=== PATIENT | male | born 1980 | race Caucasian/White ===

== ENCOUNTER → 2020-09-15 10:03 | Outpatient (BNVA) | payer MEDICAID, SELFPAY | PROVIDERS: Family Provider Family Medicine; PCP Family Medicine; Visit Provider Specialist | DX: R20.0 Anesthesia of skin (principal); G56.01 Carpal tunnel syndrome, right upper limb | CPT/HCPCS: 95908 ==

== ENCOUNTER → 2020-12-12 19:15 | Outpatient (BNVA) | payer MEDICARE, SELFPAY | PROVIDERS: Family Provider Family Medicine; PCP Family Medicine; Visit Provider Orthopaedic Surgery | DX: Z20.822 Contact with and (suspected) exposure to COVID-19 (principal) | CPT/HCPCS: 87635 ==

== ENCOUNTER 2020-12-18 06:04 | Day surgery (SDC) | payer MEDICARE, SELFPAY ==
[2020-12-18 06:25] VITALS: BP 124/66; PULSE 65; RESP 18; TEMP 36.3; O2SAT 97; BMI 34.9
[2020-12-18] MEDS: sodium chloride 0.9% 1,000 ML 30 ML IV (06:45)
--- NOTE | 2020-12-18 07:58 | P.ANESASSM_ITS ---
Pre-Anesthetic Assessment Pre-Anesthetic Assessment: Height/Weight: Height 1.73 m Weight 104.326 kg Temp Pulse Resp BP Pulse Ox 97.3 F L 65 18 124/66 97 12/18/20 06:25 12/18/20 06:25 12/18/20 06:25 12/18/20 06:25 12/18/20 06:25 Preop Diagnosis: Carpal tunnel syndrome right Proposed Procedure: Operation Date: 12/18/20 08:00 Proposed Procedures p Carpal Tunnel Release 95743 G56.01(Right) - Varghese Fuller MD Was Beta Hussein taken within 24 hours: N/A Was Clonidine taken within 24 hours: N/A Last intake: Intake Last Liquid Date 12/17/20 Last Liquid Time 21:00 Last Solid Date 12/17/20 Last Solid Time 19:30 Social: Social History: Tobacco Packs per day: 1 Comment: Smoked today Exam: Pre-Anes Outpt Exam: alert, oriented x 3, clear to auscultation bilaterally and regular rate & rhythm Airway: Submandibular: WNL Cervical ROM: WNL MP: 2 History/ROS: No significant complaints Pulmonary: Pulmonary: COPD Anesthetic Plan: ASA status: 2 Anesthesia: Anesthesia Evaluation, MAC and Regional (specify below) Other: [place] block Risk of > 500 ml blood loss (7ml/kg in children): No Meds/Allergies Current Medications: Current Medications Generic Name Dose Route Start Last Admin Trade Name Freq PRN Reason Stop Dose Admin Sodium Chloride 1,000 mls @ 30 ml s/hr 12/18/20 06:15 12/18/20 06:45 Sodium Chloride 0.9% IV 12/19/20 06:14 30 mls/hr .Q24H SANDRA Administration PFSH Anesthesia PFSH: Social History Smoking and tobacco status: current every day smoker Data Anesthesia Cardiac Studies: No Data to Display
--- NOTE | 2020-12-18 08:02 | P.HP_ITS ---
Same Day Surgery H&P Indication for Procedure/HPI DATE OF PROCEDURE: December 18, 2020 CHIEF COMPLAINT/INDICATIONFOR SURGICAL PROCEDURE: Right carpal tunnel syndrome here for right carpal tunnel release PREOP DIAGNOSIS: Carpal tunnel syndrome right PLANNED PROCEDRUE: Operation Date: 12/18/20 08:00 Proposed Procedures p Carpal Tunnel Release 58720 G56.01(Right) - Varghese Fuller MD Jace has a 1 year history of numbness tingling and burning in his right hand. EMG nerve conduction study showed moderately severe carpal tunnel syndrome. He is here for carpal tunnel release Medications/Allergies* Home Medications Medication Instructions Recorded Confirmed Type meloxicam 7.5 mg tablet 7.5 mg PO DAILY 09/15/20 12/18/20 History Allergies/Adverse Reactions Allergy/AdvReac Type Severity Reaction Status Date / Time No Known Allergies Allergy Verified 10/20/20 13:55 Current Medications: Generic Name Dose Route Start Last Admin Trade Name Freq PRN Reason Stop Dose Admin Sodium Chloride 1,000 mls @ 30 mls/hr 12/18/20 06:15 12/18/20 06:45 Sodium Chloride 0.9% IV 12/19/20 06:14 30 mls/hr .Q24H SANDRA Administration Pertinent History/Comorbid Conditions* Social History Smoking and tobacco status: current every day smoker Pertinent Exam Findings alert, oriented x 3, clear to auscultation bilaterally and regular rate & rhythm Recommendations Surgery/Procedure today Coding Level of Care Code Acute Senior Business Intelligence Analyst for Walker Simmons
[2020-12-18 08:54] VITALS: O2SAT 92
[2020-12-18 08:55] VITALS: BP 108/76; PULSE 89; RESP 14; TEMP 36.2; O2SAT 93
--- NOTE | 2020-12-18 08:55 | P.OP_ITS ---
Operative Report Date of procedure: December 18, 2020 Pre-op Diagnosis: Carpal tunnel syndrome right Post-op diagnosis: same Post-op Findings: Same Procedure Done: Right carpal tunnel syndrome Pathology: none sent Surgeon: Varghese Fuller Anesthesia: Nerve Block (Iain block) Estimated blood loss (mL): 2 Tourniquet time (min): 20 Condition: stable Disposition: PACU Procedure: Patient was taken to the operating room and anesthesia provided by the anesthesia service. She was prepped and draped with the arm exposed. A timeout was performed. A 3 cm long incision was made in line with the fourth ray from the distal edge of the carpal tunnel extending proximally. The subcutaneous fat and palmar fascia was divided with a scalpel blade. Under loupe magnification the ulnar neurovascular bundle was identified distally. A hemostat could be passed under the transverse carpal ligament allowing the distal 25% to be divided. A slotted guide was then passed beneath the transv erse carpal ligament and the middle 50% divided. Blunt scissors were then passed over the guide freeing the proximal ligament. The tourniquet was deflated. Hemostasis provided with electrocautery. Wound edges were infiltrated with 10 cc of a half percent Marcaine solution. Skin edges were reapproximated with 3-0 Prolene. Sterile dressings were applied. The patient was taken to the recovery room in stable condition
[2020-12-18 09:00] VITALS: BP 103/65; PULSE 78; RESP 19; TEMP 36.4; O2SAT 91
[2020-12-18 09:20] VITALS: BP 115/66; PULSE 72; RESP 18; TEMP 36.6; O2SAT 93
[2020-12-18] MEDS: HYDROcodone-acetaminophen 5-325 mg Tablet 1 TAB PO (09:31)
--- NOTE | 2020-12-18 10:16 | ANE.PACU2 ---
Inpatient post-anesthesia follow up: Airway intact: Yes Vital signs: Temperature 97.9 F Pulse Rate 72 Respiratory Rate 18 Blood Pressure 115/66 Pulse Oximetry 93 Oxygen Delivery Me thod Room Air Oxygen Flow Rate Fraction of Inspir ed Oxygen Hydration adequate: Yes Nausea and vomiting: No Pain level: 1 Mental status: Baseline
== END 2020-12-18 09:40 | disposition home or self-care (01) ==
PROVIDERS: PCP Family Medicine; Visit Provider Orthopaedic Surgery
PROC: (CPT 64721; principal; 2020-12-18 08:00)
DX: G56.01 Carpal tunnel syndrome, right upper limb (principal); R20.0 Anesthesia of skin; F17.200 Nicotine dependence, unspecified, uncomplicated
CPT/HCPCS: 64721; J0690; J2250; J2704; J3490; J7030

== ENCOUNTER 2021-11-29 10:50 | Emergency (ER) | payer MEDICARE, BC, SELFPAY ==
[2021-11-29 10:55] VITALS: BP 147/83; PULSE 62; RESP 20; TEMP 36.5; O2SAT 99; BMI 32.6
--- NOTE | 2021-11-29 11:18 | CTR_ITS ---
PROCEDURE INFORMATION: Exam: CT Abdomen And Pelvis With Contrast Exam date and time: 11/29/2021 11:52 AM Age: 41 years old Clinical indication: Right lower quadrant abdominal pain/tenderness. TECHNIQUE: Imaging protocol: Computed tomography of the abdomen and pelvis with contrast. Radiation optimization: All CT scans at this facility use at least one of these dose optimization techniques: automated exposure control; mA and/or kV adjustment per patient size (includes targeted exams where dose is matched to clinical indication); or iterative reconstruction. Contrast material: OMNI 350; Contrast volume: 100 ml; Contrast route: INTRAVENOUS (IV); COMPARISON: No relevant prior studies available. RADIATION DOSE METRICS: Total DLP (mGy-cm): 833.93 FINDINGS: Lungs: The lung bases are unremarkable. No pericardial effusion. No hiatal hernia. Liver: The liver is enlarged measuring 20.2 cm. Gallbladder and bile ducts: The gallbladder is unremarkable. Pancreas: The pancreas is unremarkable. Spleen: The spleen is unremarkable. Adrenal glands: The adrenal glands are unremarkable. Kidneys and ureters: A simple left renal cyst measures 1.9 cm. No hydronephrosis. Stomach and bowel: There is prominence of the wall of the distal ileum. There is thickening of the wall of the ascending colon. There is mild prominence of the wall of the transverse and descending colon. These findings are suspicious for ileocolitis. Appendix: The appendix is not identified. Intraperitoneal space: No free intraperitoneal air is seen. Vasculature: No abdominal aortic aneurysm. Lymph nodes: No retroperitoneal lymphadenopathy. A right external iliac lymph node measures 1.0 x 1.8 cm. A left external iliac lymph node measures 1.1 x 2.3 cm. Urinary bladder: The bladder wall is thickened. Considerations include partial outlet obstruction or cystitis. Correlate with urinalysis. Reproductive: The prostate measures 4.1 x 4.5 cm. Bones/joints: Severe osteoarthritis at the right hip. Mild osteoarthritis at the left hip. No acute fracture is seen. Soft tissues: Small fat containing umbilical hernia. CT/CT abdomen pelvis w con* [id number] IMPRESSION: 1. The appendix is not identified and may have been removed. 2. Findings suspicious for ileocolitis. 3. The bladder wall is thickened. Considerations include partial outlet obstruction or cystitis. Correlate with urinalysis. 4. Enlarged prostate. Correlate with serum PSA. 5. Mild bilateral pelvic lymphadenopathy. 6. Severe osteoarthritis at the right hip. Mild osteoarthritis at the left hip. 7. Hepatomegaly. COMMENTS: Consistent with the [employer]'s Incidental Findings Committee white paper (J Am Aisha Radiol 2018): Any incidental renal lesion less than 1 cm or classified as too small to characterize, or any incidental cystic renal lesion characterized as simple-appearing, is likely benign. No follow-up imaging is recommended for these lesions per consensus recommendations based on imaging criteria.
[2021-11-29 11:23] LABS: Add Urine Microscopic? NO; Charge for UA Resulting for Rev
[2021-11-29 11:24] LABS: Bilirubin Urine Neg (Negative); Blood Urine Neg (Negative); Glucose Urine UA Norm (Normal); Ketones Urine Negative (Negative); Leukocyte Esterase Urine Negative (Negative); Nitrate Urine Negative (Negative); Protein Urine Neg (Negative); Urine Appearance Clear (CLEAR); Urine Color Yellow (Yellow); Urobilinogen Urine Norm (Negative); pH Urine 7 (5-7)
[2021-11-29 11:40] LABS: Basophils # 0.1 10^3/uL (0.0-0.1); Basophils % 0.6 %; Eosinophils # 0.2 10^3/uL (0.0-0.8); Eosinophils % 2.2 %; Hematocrit 46.8 % (42.0-52.0); Hemoglobin 15.7 g/dL (11.7-16.6); Lymphocytes # 1.7 10^3/uL (0.8-4.8); Lymphocytes % 21.9 %; Mean Corpuscular HGB Conc 33.5 g/dL (30.0-36.0); Mean Corpuscular Hemoglobin 29.6 pg (28.0-34.0); Mean Corpuscular Volume 88.1 fl (80-94); Mean Platelet Volume 9.6 fL (7.4-10.4); Monocytes # 0.8 10^3/uL (0.2-0.9); Monocytes % 10.1 %; Neutrophils % 64.8 %; Nucleated Red Blood Cells % 0 %; Platelet Count 317 10^3/cmm (130-400); Red Blood Count 5.31 10^6/uL (4.1-5.3); Red Cell Distribution Width 12.8 % (12.1-15.1); White Blood Count 7.9 10^3/uL (4.0-10.0)
[2021-11-29 11:57] LABS: Alanine Aminotransferase 24 U/L (0-41); Albumin Level 4.1 g/dL (3.5-5.2); Alkaline Phosphatase 86 U/L (40-130); Anion Gap 14.5 (5-19); Aspartate Amino Transferase 14 U/L (0-40); Blood Urea Nitrogen 15 mg/dL (6-20); Calcium 9.1 mg/dL (8.5-10.5); Carbon Dioxide 23 mmol/L (22-29); Chloride 105 mmol/L (98-107); Globulin 2.5 g/dL (1.3-4.6); Glomerular Filtration Rate 124.9 mL/min (90-130); Glucose 103 mg/dL (65-115); Lipase 27 U/L (13-60); Osmolality Calculated 287 mOsm/kg (285-295); Potassium 4.5 mmol/L (3.5-5.1); Sodium 138 mmol/L (136-145); Total Bilirubin 0.3 mg/dL (0.15-1.2); Total Protein 6.6 g/dL (6.6-8.7)
[2021-11-29] MEDS: iohexol 350 mg/mL 100 mL Btl IV (11:57)
[2021-11-29] MEDS: ketorolac 30 mg/mL INJ 15 MG IVP (13:06)
[2021-11-29] MEDS: acetaminophen 500 mg Tablet 1000 MG PO (13:06)
--- NOTE | 2021-11-29 13:07 | ED_ITS ---
HPI - Abdominal Pain General: Chief Complaint: Abdominal Pain Stated Complaint: Abd pains Time Seen by Provider: 11/29/21 11:12 History of Present Illness: 41-year-old male presenting today with right lower quadrant abdominal pain. Patient notes onset of pain over the last several da ys. Pain radiates from his back to his right lower quadrant. Associated nausea without vomiting. No diarrhea. No black or bloody stools. He does note dysuria with polyuria. No prior history of similar. No recent antibiotics. Review of Systems General: Reports: 10 or more systems reviewed and unremarkable except in HPI and below Physical Exam Const: COMMON NORMALS: no acute distress, patient oriented x3 and alert GENERAL APPEARANCE: cooperative ORIENTATION/CONSCIOUSNESS: Yes awake, Yes oriented to person, Yes oriented to place and Yes oriented to time HENMT: COMMON NORMALS: normocephalic, atraumatic, external ears normal, Normal external nose present and moist oral mucous membranes HEAD & SCALP: normal to inspection, normocephalic and atraumatic NOSE: Normal external nose present GENERAL EAR: hearing grossly impaired EXTERNAL EAR: Yes external ears normal Eye: COMMON NORMALS: Equal, round and reactive pupils present, EOMs intact bilaterally, conjunctivae normal and no scleral icterus GENERAL EYE: lenny earance normal, both eyes and all related structures EYELID: eyelids normal CONJUNCTIVA: Yes conjunctivae normal SCLERA: sclerae normal PUPIL: Yes Equal, round and reactive pupils present Neck/C-Spine: COMMON NORMALS: full ROM, supple and no JVD GENERAL: Yes normal visual inspection Lymph: LYMPHATIC: no lymphadenopathy noted and no lymphedema noted Chest: COMMONS NORMALS: normal inspection of the chest Resp: COMMON NORMALS: normal respiratory effort, No retractions and No use of accessory muscles Cardio: COMMON NORMALS: no JVD, regular rate and regular rhythm RATE: regular rate RHYTHM: regular rhythm GI: COMMON NORMALS: Normal to inspection, nondistended, normoactive bowel sounds present (Right lower quadrant tenderness is present.) : COMMON NORMALS: Yes no CVA tenderness BLADDER/KIDNEY EXAM: Yes no CVA tenderness Back/Pelvis: COMMON NORMALS: no CVA tenderness and thoracic and lumbar spine normal to inspection Extremity: COMMON NORMALS: normal to inspection, full ROM and capillary refill normal GENERAL: Yes normal exam except as noted Neuro: COMMON NORMALS: patient oriented x3, CN's II-XII intact bilaterally, moves all extremities, no focal motor deficits, no sensory deficits noted and gait normal SENSORIUM/ORIENTATION: Yes alert, Yes oriented to person, Yes oriented to place and Yes oriented to time Psych: COMMON NORMALS: mental status grossly normal, Normal thought process present, cooperative and normal affect THOUGHT PROCESS: Normal thought process present Skin: COMMON NORMALS: no rashes or lesions noted and no wounds GENERAL SKIN EXAM: no rashes or lesions noted Course Vital Signs: Vital signs: Vital Signs Temperature 97.7 F 11/29/21 10:55 Pulse Rate 62 11/29/21 10:55 Respiratory Rate 20 H 11/29/21 10:55 Blood Pressure 147/83 11/29/21 10:55 Pulse Oximetry 99 11/29/21 10:55 Oxygen Delivery Me thod 11/29/21 10:55 MDM - Abdominal Pain Medical Decision Making 41-year-old male presenting today with right lower quadrant pain. CT abdomen pelvis with evidence of ileocolitis. Patient with history of appendectomy. We will start patient on Augmentin for the same. Vitals within normal limits. Except for slightly elevated blood pressure. CBC and CMP are unremarkable. Urinalysis is unremarkable. Patient was given strict return precautions and recommended routine outpatient follow-up. Lab Data : 11/29/21 11:30 11/29/21 11:30 Labs/Radiology: Radiology Impressions Abdomen/Pelvis CT 11/29/21 11:18 IMPRESSION: 1. The appendix is not identified and may have been removed. 2. Findings suspicious for ileocolitis. 3. The bladder wall is thickened. Considerations include partial outlet obstruction or cystitis. Correlate with urinalysis. 4. Enlarged prostate. Correlate with serum PSA. 5. Mild bilateral pelvic lymphadenopathy. 6. Severe osteoarthritis at the right hip. Mild osteoarthritis at the left hip. 7. Hepatomegaly. COMMENTS: Consistent with the [employer]'s Incidental Findings Committee white paper (J Am Aisha Radiol 2018): Any incidental renal lesion less than 1 cm or classified as too small to characterize, or any incidental cystic renal lesion characterized as simple-appearing, is likely benign. No follow-up imaging is recommended for these lesions per consensus recommendations based on imaging criteria. Laboratory Results WBC 7.9 10^3/uL (4.0-10.0) 11/29/21 11:30 RBC 5.31 10^6/uL (4.1-5.3) H 11/29/21 11:30 Hgb 15.7 g/dL (11.7-16.6) 11/29/21 11:30 Hct 46.8 % (42.0-52.0) 11/29/21 11:30 MCV 88.1 fl (80-94) 11/29/21 11:30 MCH 29.6 pg (28.0-34.0) 11/29/21 11:30 MCHC 33.5 g/dL (30.0-36.0) 11/29/21 11:30 RDW 12.8 % (12.1-15.1) 11/29/21 11:30 Plt Count 317 10^3/cmm (130-400) 11/29/21 11:30 MPV 9.6 fL (7.4-10.4) 11/29/21 11:30 Neut % (Auto) 64.8 % 11/29/21 11: Lymph % (Auto) 21.9 % 11/29/21 11:30 [place] % (Auto) 10.1 % 11/29/21 11:30 Eos % (Auto) 2.2 % 11/29/21 11:30 Baso % (Auto) 0.6 % 11/29/21 11: Neut # (Auto) 5.10 10^3/uL (1.8-7.7) 11/29/21 11:30 Lymph # (Auto) 1.7 10^3/uL (0.8-4.8) 11/29/21 11:30 [place] # (Auto) 0.8 10^3/uL (0.2-0.9) 11/29/21 11:30 Eos # (Auto) 0.2 10^3/uL (0.0-0.8) 11/29/21 11:30 Baso # (Auto) 0.1 10^3/uL (0.0-0.1) 11/29/21 11:30 Nucleated RBC % (auto) 0 % 11/29/21 11: Nucleated RBCs # 0.0 /100WBC 11/29/21 11:30 Sodium 138 mmol/L (136-145) 11/29/21 11:30 Potassium 4.5 mmol/L (3.5-5.1) 11/29/21 11:30 Chloride 105 mmol/L (98-107) 11/29/21 11:30 Carbon Dioxide 23 mmol/L (22-29) 11/29/21 11:30 Anion Gap 14.5 (5-19) 11/29/21 11:30 BUN 15 mg/dL (6-20) 11/29/21 11:30 Creatinine 0.7 mg/dL (0.7-1.2) 11/29/21 11:30 GFR Calculation 124.9 mL/min (90-130) 11/29/21 11:30 Glucose 103 mg/dL (65-115) 11/29/21 11:30 Calculated Osmolality 287 mOsm/kg (285-295) 11/29/21 11:30 Calcium 9.1 mg/dL (8.5-10.5) 11/29/21 11:30 Total Bilirubin 0.3 mg/dL (0.15-1.2) 11/29/21 11:30 AST 14 U/L (0-40) 11/29/21 11:30 ALT 24 U/L (0-41) 11/29/21 11:30 Alkaline Phosphatase 86 U/L (40-130) 11/29/21 11:30 Total Protein 6.6 g/dL (6.6-8.7) 11/29/21 11:30 Albumin 4.1 g/dL (3.5-5.2) 11/29/21 11:30 Globulin 2.5 g/dL (1.3-4.6) 11/29/21 11:30 Lipase 27 U/L (13-60) 11/29/21 11:30 Urine Color Yellow (Yellow) 11/29/21 11:15 Urine Appearance Clear (CLEAR) 11/29/21 11:15 Urine pH 7 (5-7) 11/29/21 11:15 Ur Specific [place] 1.010 (1.005-1.030) 11/29/21 11:15 Urine Protein Neg (Negative) 11/29/21 11:15 Urine Glucose (UA) Norm (Normal) 11/29/21 11:15 Urine Ketones Negative (Negative) 11/29/21 11:15 Urine Blood Neg (Negative) 11/29/21 11:15 Urine Nitrate Negative (Negative) 11/29/21 11:15 Urine Bilirubin Neg (Negative) 11/29/21 11:15 Urine Urobilinogen Norm mg/dL (Negative) 11/29/21 11:15 Ur Leukocyte Esterase Negative (Negative) 11/29/21 11:15 Discharge Plan Discharge Patient Disposition: Home Clinical Impression: Ileocolitis Condition: Stable Prescriptions: New diclofenac sodium 75 mg tablet,delayed release (DR/EC) 75 mg PO BID Qty: 30 0RF amoxicillin-pot clavulanate 875-125 mg tablet 1 tab PO Q12H 7 Days Qty: 14 0RF No Action meloxicam 7.5 mg tablet 7.5 mg PO DAILY hydrocodone-acetaminophen 5-325 mg tablet 1 tab PO Q4H Qty: 15 0RF Discharge Orders: Discharge ED (Routine); Ordered 11/29/21 Ordered By: Bacilio Teixeira Referrals: Hemanth Elkins [Primary Care Provider] - Patient Instructions: Colitis (ED) Coding Level of Care Code ED Paraprofessional Education Assistant for Walker Simmons
[2021-11-29 13:09] VITALS: BP 113/66; PULSE 80; RESP 16; O2SAT 97
== END 2021-11-29 13:37 | disposition home or self-care (01) ==
PROVIDERS: Emergency Medicine; Emergency Provider Emergency Medicine; PCP Family Medicine
DX: K52.9 Noninfective gastroenteritis and colitis, unspecified (principal)
CPT/HCPCS: 74177; 80053; 81003; 83690; 85025; 96374; 99285; J1885; Q9967